=== PATIENT | male | born 1970 | race American Indian/Alaskan Native ===

== ENCOUNTER 2019-07-05 14:23 | Emergency (ER) | payer SELFPAY ==
[2019-07-05] MEDS ORDERED: HYDROmorphone 1 MG/1 ML INJ IV ONE ×2 (14:30→15:17)
[2019-07-05] MEDS ORDERED: SODIUM CHLORIDE 0.9% 1000 ML 1,000 ML IV ONE (14:30)
[2019-07-05] MEDS ORDERED: LORazepam 2 MG/ML VIAL IV STA (14:44)
--- NOTE | 2019-07-05 14:44 | Emergency Department Report ---
Upper Extremity - HPI Stated Complaint: RT HAND CUT/PAIN Time Seen by Provider: 07/05/19 14:30 Upper Extremity: Right Index Finger, Right Middle Finger, Right Ring Finger, Right Little Finger Occurred When: Today Symptoms: Yes Pain with Movement, Yes Deformity, Yes Limited Range of Movement, Yes Laceration or Abrasion Other History: 48 y/o male comes in for right injury that severed at work with a pole type machine. Patient is right handed. Patient has NKDA. ED Review of Systems ROS: Stated complaint: RT HAND CUT/PAIN Other details as noted in HPI Comment: All other systems reviewed and negative Upper Extremity Exam - Exam General: Vital signs noted. No distress. Alert and acting appropriately. Head and Torso: No HEENT Abnormality, No Neck Tenderness, No Chest/Lungs Abnormality, No Abdominal Tenderness, No Back Tenderness Shoulder Exam: Yes Normal Range of Motion in Shoulder, No Shoulder Tenderness, No Clavicle Tenderness, No Shoulder Deformity, No AC Joint Tenderness Arm Exam: No Arm/Humerus Tenderness, No Arm Deformity Elbow: No Elbow Tenderness, No Normal Range of Motion in Elbow, No Elbow Deformity Hand: Yes Hand Deformity (index severed at distal tip middle finger lacerated at the DIP joint with partial attachment, 4th finger severed from the DIP and 5th finger severed at the tip. Active bleeding but oozing. ) CMS Exam: Yes Broken Skin, No Normal Capillary Refill, No Normal Distal Sensation ED Medical Decision Making - Medical Decision Making 48 y/o male comes in for right injury that severed at work with a pole type machine. Patient is right handed. Patient has NKDA. Informed Dr. Hedrick he came to evaluate. Orders have been placed call has been placed to [facility]. Iv has been placed. Critical care attestation.: If time is entered above; I have spent that time in minutes in the direct care of this critically ill patient, excluding procedure time. ED Disposition Condition: Stable
[2019-07-05] MEDS ORDERED: LORazepam 2 MG/ML VIAL ONE (14:47)
[2019-07-05] MEDS ORDERED: SODIUM CHLORIDE IRRI 500 ML 500 ML IR ONE (14:52)
--- NOTE | 2019-07-05 15:03 | Emergency Department Report ---
ED Upper Extremity Inj HPI - General Chief Complaint: Wound/Laceration Stated Complaint: RT HAND CUT/PAIN Time Seen by Provider: 07/05/19 14:30 Source: patient Mode of arrival: Ambulatory Limitations: No Limitations - History of Present Illness MD Complaint: Injury to:: right, finger -: Sudden Other Extremity Injury: Fingers: Right Other Injuries: none Handedness: right Place: work Improves With: none Worsens With: none Context: direct blow (hand versus pole pounder), injury Associated Symptoms: denies: weakness, numbness, suspects foreign body, nausea/vomiting, heard/felt popping sensat - Related Data Allergies Allergy/AdvReac Type Severity Reaction Status Date / Time No Known Allergies Allergy Verified 07/05/19 14:38 ED Review of Systems ROS: Stated complaint: RT HAND CUT/PAIN Other details as noted in HPI Comment: All other systems reviewed and negative ED Physical Exam - General Limitations: No Limitations General appearance: alert, other - Head Head exam: Present: atraumatic - Eye Eye exam: Present: normal appearance (in obvious pain), PERRL - Extremities Exam Extremities exam: Present: tenderness - Expanded Upper Extremity Exam Right Forearm Wrist exam: Present: normal inspection Hand Wrist exam: Present: tenderness, deformity, amputation Hand L/R Front: 1 - Positive: amputation (impression dictation of this region) 2 - Positive: amputation 3 - Positive: amputation (near-complete amputation of this region) 4 - Positive: avulsion 5 - Positive: normal inspection (pulses 2+4 range of motion noted) Vascular: Present: normal capillary refill (to the fifth and first phalange) - Neurological Exam Neurological exam: Present: alert, oriented X3 ED Medical Decision Making - Medical Decision Making 8-year-old male hand versus pole pounder resulting in amputations of his second through fifth phalanges with the fifth been a tip avulsion. His thumb is unaffected past has has been to motion with pain capillary refills are brisk pulses are 2+ no thenar or hyperthenar pain. No other abrasions or or or injuries. The wound was irrigated and dressed with a a Larry more a moist dressing. He was treated with Ancef 2 g and pain medication form of dialogue and Ativan and tetanus shot was also also provided. Case was discussed with the [facility] specialist plan is to do an ER to ER transfer via ground. The also requested that pictures be sent prior to patient's arrival. Critical care attestation.: If time is entered above; I have spent that time in minutes in the direct care of this critically ill patient, excluding procedure time. ED Disposition Clinical Impression: Amputation of right index finger, Amputation of right ring finger, Amputation of right middle finger, Avulsion of fingertip Disposition: [id number] ANOTHER TYPE HLTHCARE Is pt being admited?: No Does the pt Need Aspirin: No Condition: Stable Additional Instructions: Transfer patient to [facility] ground. Patient is stable for transfer
[2019-07-05] MEDS ORDERED: TETANUS,DIPH,PERTUSS(ACELL) VACCINE 0.5 ML SYRINGE IM ONE (15:06)
[2019-07-05 16:42] VITALS: BP 125/76
== END 2019-07-05 17:50 | disposition other institution (70) ==
LOC: ED 14:23
DX: S68.120A Partial traumatic metacarpophalangeal amputation of right index finger, initial encounter (principal); S68.124A Partial traumatic metacarpophalangeal amputation of right ring finger, initial encounter; S68.122A Partial traumatic metacarpophalangeal amputation of right middle finger, initial encounter; X58.XXXA Exposure to other specified factors, initial encounter; Y93.89 Activity, other specified; Y92.89 Other specified places as the place of occurrence of the external cause; Y99.8 Other external cause status
CPT/HCPCS: 90471; 96365; 96375; 99284; J0690; J1170; J2060; J7030